=== PATIENT | female | born 1975 | race Caucasian/White ===

== ENCOUNTER 2018-05-31 05:21 | Inpatient (IN) | payer MEDICAID ==
[2018-05-31] VITALS (56 sets, daily range): BP systolic 60–176; BP diastolic 29–99
[~2018-05-31] VITALS: Ht 165.1 cm; Wt 75.4 kg
[2018-05-31] MEDS ORDERED: GELATIN SPONGE,ABSORBABLE 12-7MM SPONGE ONE (06:15)
[2018-05-31] MEDS ORDERED: LACTATED RINGERS 1,000 ML IV SCH (06:15)
[2018-05-31] MEDS ORDERED: THROMBIN (BOVINE) 5000 UNITS/VIAL TOP ONE (06:16)
[2018-05-31] MEDS ORDERED: LIDOCAINE HCL/EPINEPHRINE 1%-EPI 1:100,000 20 ML VIAL ONE (06:16)
[2018-05-31] MEDS ORDERED: BACITRACIN 50,000 UNITS/VIAL ONE (06:16)
[2018-05-31] MEDS ORDERED: SERT-112 PO (06:21)
[2018-05-31] MEDS ORDERED: LEVO137T2 PO (06:21)
[2018-05-31] MEDS ORDERED: PROPOFOL 200MG/20ML VIAL IV ONE (07:03)
[2018-05-31] MEDS ORDERED: MIDAZOLAM HCL 2 MG/2 ML VIAL ONE ×2 (07:04→08:59)
[2018-05-31] MEDS ORDERED: ROCURONIUM BROMIDE 10MG/ML VIAL 5ML IV ONE ×2 (07:10→07:54)
[2018-05-31] MEDS ORDERED: ONDANSETRON HCL 4MG/2ML INJ IV PRN (07:15)
[2018-05-31] MEDS ORDERED: GLYCOPYRROLATE 0.2 MG/ML 2ML VIAL ONE ×2 (07:20→08:48)
[2018-05-31] MEDS ORDERED: LABETALOL HCL 5MG/ML VIAL 20ML IV ONE (07:41)
[2018-05-31] MEDS ORDERED: NEOSTIGMINE METHYLSULFATE 1MG/ML 10 ML VIAL ONE (08:48)
[2018-05-31] MEDS ORDERED: FENTANYL CITRATE/PF 50MCG/ML 2ML VIAL ONE (09:34)
[2018-05-31] MEDS ORDERED: NALOXONE INJ IV PRN (10:00)
[2018-05-31] MEDS ORDERED: ONDANSETRON INJ IV PRN (10:00)
[2018-05-31] MEDS ORDERED: NICARDIPINE 100 MG in SODIUM CHLORIDE 0.9% 60 ML IV PRN (10:00)
[2018-05-31] MEDS: MORPHINE SULFATE 4 MG/ML CPJ (NOT FOR IM USE) IV PRN ×6 (10:02→23:04)
[2018-05-31] MEDS: DEXT 5%/LACTATED RINGERS 1,000 ML IV SCH ×2 (10:04→17:05)
[2018-05-31] MEDS: HYDROMORPHONE PCA 10MG/50ML IV PRN ×2 (10:13→20:55)
[2018-05-31] MEDS: DEXAMETHASONE 4MG/ML 1ML VIAL IV SCH ×2 (11:33→17:05)
[2018-05-31] MEDS: DIPHENHYDRAMINE INJ IV PRN ×3 (11:33→19:53)
[2018-05-31 13:06] LABS: HEMATOCRIT 27.2 % (36.0-48.0); HEMOGLOBIN 8.4 g/dL (12.0-16.0); MEAN CORPUSCULAR HEMOGLOBIN 20.3 pg (28.0-32.0); PLATELET 275 x1000/uL (130-400); RED BLOOD CELL COUNT 4.13 mill/uL (4.2-5.4); RED CELL DISTRIBUTION WIDTH 20.1 % (11.6-14.6)
[2018-05-31 13:21] LABS: CHLORIDE 110 mEq/L (98-107)
[2018-05-31] MEDS: LEVOTHYROXINE SODIUM 137MCG TABLET PO SCH (13:22)
[2018-05-31] MEDS: SERTRALINE HCL 100MG TABLET PO SCH (13:22)
[2018-05-31 13:27] LABS: LDL CHOLESTEROL 103 mg/dL (5-100); PHOSPHORUS 4.5 mg/dL (2.5-4.9)
[2018-05-31 13:29] LABS: HDL CHOLESTEROL 60 mg/dL (40-59)
[2018-05-31] MEDS ORDERED: CEFAZOLIN SODIUM 1000MG/VIAL IV SCH (14:00)
[2018-05-31] MEDS: CEFAZOLIN 1000MG PREMIX 50 ML IV SCH ×2 (16:04→21:16)
[2018-05-31] MEDS ORDERED: LACTULOSE 20G/30ML UDC PO PRN (17:30)
[2018-05-31] MEDS ORDERED: IPRATROPIUM/ALBUTEROL 0.5-3(2.5)MG/3ML NEB HHN PRN (17:30)
[2018-05-31] MEDS ORDERED: BISACODYL 5MG TABLET PO PRN (17:30)
[2018-05-31] MEDS: HYDROCODONE/APAP 7.5/325MG 1 TAB TABLET PO PRN ×2 (19:05→23:04)
[2018-05-31] MEDS: DOCUSATE SODIUM 250MG CAPSULE PO SCH (19:05)
[2018-05-31] MEDS: PANTOPRAZOLE SODIUM 40 MG/VIAL IV SCH (19:53)
[2018-05-31] MEDS: LORAZEPAM 2MG/ML CPJ IV PRN (21:58)
[2018-06-01] VITALS (91 sets, daily range): BP systolic 95–171; BP diastolic 33–115
[2018-06-01] MEDS: DEXAMETHASONE 4MG/ML 1ML VIAL IV SCH ×3 (00:56→11:44)
[2018-06-01] MEDS: DIPHENHYDRAMINE INJ IV PRN ×4 (00:56→18:27)
[2018-06-01] MEDS: MORPHINE SULFATE 4 MG/ML CPJ (NOT FOR IM USE) IV PRN ×9 (00:57→21:37)
[2018-06-01] MEDS: DEXT 5%/LACTATED RINGERS 1,000 ML IV SCH ×3 (01:48→19:55)
[2018-06-01] MEDS: HYDROCODONE/APAP 7.5/325MG 1 TAB TABLET PO PRN ×5 (03:14→21:16)
[2018-06-01 05:05] LABS: HEMOGLOBIN. 8.8 g/dL (12.0-16.0); MEAN CORPUSCULAR HEMOGLOBIN 20.1 pg (28.0-32.0); MEAN PLATELET VOLUME 7.5 fl (7.4-10.4); PLATELET 303 x1000/uL (130-400); RED CELL DISTRIBUTION WIDTH 20.1 % (11.6-14.6)
[2018-06-01] MEDS: CEFAZOLIN 1000MG PREMIX 50 ML IV SCH ×2 (05:20→15:45)
[2018-06-01 05:26] LABS: CHLORIDE 102 mEq/L (98-107)
[2018-06-01] MEDS: LEVOTHYROXINE SODIUM 137MCG TABLET PO SCH (06:12)
[2018-06-01] MEDS: FERROUS SULFATE 325MG TABLET PO SCH ×3 (06:12→17:08)
[2018-06-01] MEDS: HYDROMORPHONE PCA 10MG/50ML IV PRN ×2 (07:52→19:55)
[2018-06-01] MEDS: CYCLOBENZAPRINE 10MG TABLET PO PRN ×3 (08:42→20:09)
[2018-06-01] MEDS: SERTRALINE HCL 100MG TABLET PO SCH (09:15)
[2018-06-01] MEDS: DOCUSATE SODIUM 250MG CAPSULE PO SCH (09:15)
[2018-06-01] MEDS: PANTOPRAZOLE SODIUM 40 MG/VIAL IV SCH (09:15)
[2018-06-01 10:19] LABS: PLATELET ESTIMATE NORMAL
[2018-06-01] MEDS ORDERED: MORPHINE SULFATE 4 MG/ML CPJ (NOT FOR IM USE) IV PRN ×2 (12:15)
[2018-06-01] MEDS: ALPRAZOLAM 0.5 MG TABLET PO PRN ×2 (12:33→21:37)
[2018-06-02] VITALS (56 sets, daily range): BP systolic 91–163; BP diastolic 26–122
[2018-06-02] MEDS: DIPHENHYDRAMINE INJ IV PRN ×6 (00:37→23:43)
[2018-06-02] MEDS: MORPHINE SULFATE 4 MG/ML CPJ (NOT FOR IM USE) IV PRN ×6 (00:42→20:34)
[2018-06-02] MEDS: LORAZEPAM 2MG/ML CPJ IV PRN (01:50)
[2018-06-02] MEDS: DEXT 5%/LACTATED RINGERS 1,000 ML IV SCH (04:55)
[2018-06-02] MEDS: CYCLOBENZAPRINE 10MG TABLET PO PRN (04:55)
[2018-06-02] MEDS: HYDROCODONE/APAP 7.5/325MG 1 TAB TABLET PO PRN ×5 (05:44→23:44)
[2018-06-02] MEDS: ALPRAZOLAM 0.5 MG TABLET PO PRN ×4 (05:44→21:26)
[2018-06-02 06:00] LABS: BASOPHILS % 0.6 % (0.0-2.0); EOSINOPHILS % 0.5 % (0.0-5.0); HEMATOCRIT. 29.1 % (36.0-48.0); HEMOGLOBIN. 8.8 g/dL (12.0-16.0); LYMPHOCYTES % 17.2 % (20.0-50.0); MEAN CORPUSCULAR HEMOGLOBIN 20.2 pg (28.0-32.0); MEAN CORPUSCULAR VOLUME 66.6 fL (81.0-99.0); MEAN PLATELET VOLUME 7.6 fl (7.4-10.4); MONOCYTES % 8.9 % (2.0-8.0); NEUTROPHILS % 72.8 % (40.0-76.0); PLATELET 283 x1000/uL (130-400); RED BLOOD CELL COUNT 4.38 mill/uL (4.2-5.4)
[2018-06-02 06:04] LABS: CHLORIDE 101 mEq/L (98-107)
[2018-06-02] MEDS: LEVOTHYROXINE SODIUM 137MCG TABLET PO SCH (06:35)
[2018-06-02] MEDS: FERROUS SULFATE 325MG TABLET PO SCH ×3 (06:35→18:36)
[2018-06-02] MEDS: DOCUSATE SODIUM 250MG CAPSULE PO SCH (08:56)
[2018-06-02] MEDS: SERTRALINE HCL 100MG TABLET PO SCH (08:56)
[2018-06-02] MEDS: PANTOPRAZOLE SODIUM 40 MG/VIAL IV SCH (08:56)
[2018-06-02] MEDS ORDERED: POTASSIUM CHLORIDE 20MEQ TABLET SR PO NR (09:00)
[2018-06-02] MEDS ORDERED: CYCLOBENZAPRINE 10MG TABLET PO PRN ×2 (13:00→18:30)
[2018-06-02] MEDS: HYDROMORPHONE PCA 10MG/50ML IV PRN (14:29)
[2018-06-02] MEDS ORDERED: ALPRAZOLAM 0.5 MG TABLET PO PRN (18:30)
[2018-06-03] VITALS: BP 129/88
[2018-06-03] MEDS: MORPHINE SULFATE 4 MG/ML CPJ (NOT FOR IM USE) IV PRN ×3 (03:52→12:54)
[2018-06-03 04:00] VITALS: BP 142/90
[2018-06-03] MEDS: DIPHENHYDRAMINE INJ IV PRN ×2 (04:04→09:22)
[2018-06-03] MEDS: LEVOTHYROXINE SODIUM 137MCG TABLET PO SCH (06:34)
[2018-06-03] MEDS: HYDROCODONE/APAP 7.5/325MG 1 TAB TABLET PO PRN (06:36)
[2018-06-03 07:35] LABS: BASOPHILS % 0.9 % (0.0-2.0); EOSINOPHILS % 2.5 % (0.0-5.0); HEMATOCRIT. 27.6 % (36.0-48.0); HEMOGLOBIN. 8.4 g/dL (12.0-16.0); LYMPHOCYTES % 23.8 % (20.0-50.0); MEAN CORPUSCULAR HEMOGLOBIN 20.2 pg (28.0-32.0); MEAN PLATELET VOLUME 7.9 fl (7.4-10.4); MONOCYTES % 10.8 % (2.0-8.0); PLATELET 274 x1000/uL (130-400); RED BLOOD CELL COUNT 4.18 mill/uL (4.2-5.4); RED CELL DISTRIBUTION WIDTH 19.8 % (11.6-14.6)
[2018-06-03 08:00] VITALS: BP 125/76
[2018-06-03 08:12] LABS: CHLORIDE 99 mEq/L (98-107)
[2018-06-03] MEDS: DOCUSATE SODIUM 250MG CAPSULE PO SCH (08:36)
[2018-06-03] MEDS: PANTOPRAZOLE SODIUM 40 MG/VIAL IV SCH (08:36)
[2018-06-03] MEDS: SERTRALINE HCL 100MG TABLET PO SCH (08:36)
[2018-06-03] MEDS: FERROUS SULFATE 325MG TABLET PO SCH ×2 (08:36→12:54)
[2018-06-03] MEDS: ALPRAZOLAM 0.5 MG TABLET PO PRN (09:40)
[2018-06-03 15:01] VITALS: BP 126/77
[2018-06-03 16:00] VITALS: BP 101/71
[2018-06-03] MEDS ORDERED: MORPHINE SULFATE 4 MG/ML CPJ (NOT FOR IM USE) IV NR (16:29)
[2018-06-03 16:33] VITALS: BP 127/80
== END 2018-06-03 17:22 | disposition home or self-care (01) | DRG 321 ==
LOC: OR 05:21 → MICUNO 05:22 → 6EST 06-02 16:55
PROVIDERS: ADMIT Internal Medicine; ATTEND Internal Medicine
PROC: 0RG20K0 Fusion of 2 or more Cervical Vertebral Joints with Nonautologous Tissue Substitute, Anterior Approach, Anterior Column, Open Approach (ICD-10-PCS; principal; 2018-06-01)
PROC: 0RB30ZZ Excision of Cervical Vertebral Disc, Open Approach (ICD-10-PCS; 2018-06-01)
DX: M48.02 Spinal stenosis, cervical region (principal); G82.50 Quadriplegia, unspecified; M47.12 Other spondylosis with myelopathy, cervical region; M47.22 Other spondylosis with radiculopathy, cervical region; F32.9 Major depressive disorder, single episode, unspecified; F41.9 Anxiety disorder, unspecified; E03.9 Hypothyroidism, unspecified; D50.9 Iron deficiency anemia, unspecified; R26.9 Unspecified abnormalities of gait and mobility; G89.18 Other acute postprocedural pain; Z90.710 Acquired absence of both cervix and uterus; Z98.1 Arthrodesis status; Z98.84 Bariatric surgery status; Z98.891 History of uterine scar from previous surgery
CPT/HCPCS: 36415; 72040; 72141; 76000; 80048; 80061; 83036; 83735; 84100; 84443; 85027; 86850; 86900; 88304; 88311; 95925; 95926; 95928; 97116; 97161; 97166; 97535; C1713; C9113; J0690; J1100; J1170; J1200; J2060; J2250; J2270; J2704; J2710; J3010; J3490; J7050; J7121; L0172

== ENCOUNTER 2019-06-13 11:17 | Emergency (ER) | payer MEDICAID ==
[~2019-06-13] VITALS: Ht 165.1 cm; Wt 70.3 kg
[~2019-06-13 11:17] MED LIST: ALPR1TAB2 MT; BUSP5TAB3 PO; CARI350T27 MT; CITA40TA11 PO; CYCL7.5T25 MT; LEVO137T2 PO
[2019-06-13 11:28] VITALS: BP 113/40
== END 2019-06-13 13:34 | disposition home or self-care (01) ==
LOC: ER 11:17
DX: M54.2 Cervicalgia (principal); F12.10 Cannabis abuse, uncomplicated; Z98.1 Arthrodesis status; Z90.710 Acquired absence of both cervix and uterus
CPT/HCPCS: 72141; 99284

== ENCOUNTER 2019-07-18 12:28 | Emergency (ER) | payer MEDICAID ==
[~2019-07-18] VITALS: Ht 165.1 cm; Wt 75.0 kg
[2019-07-18 12:38] VITALS: BP 129/103
[2019-07-18] MEDS ORDERED: IBUPROFEN 800MG TABLET PO ONE (13:00)
[2019-07-18] MEDS ORDERED: ACETAMINOPHEN 500MG TABLET PO ONE (13:00)
[2019-07-18] MEDS ORDERED: LORAZEPAM 1MG TABLET PO ONE (13:45)
== END 2019-07-18 15:53 | disposition home or self-care (01) ==
LOC: ER 12:28
DX: G62.9 Polyneuropathy, unspecified (principal); M25.511 Pain in right shoulder; F12.10 Cannabis abuse, uncomplicated; Z98.1 Arthrodesis status; Z87.11 Personal history of peptic ulcer disease
CPT/HCPCS: 72040; 99283

== ENCOUNTER 2019-12-20 11:49 | Inpatient (IN) | payer MEDICAID ==
[~2019-12-20] VITALS: Ht 165.1 cm; Wt 74.8 kg
[2019-12-20] MEDS ORDERED: SODIUM CHLORIDE 0.9% 1,000 ML IV ONE (12:45)
[2019-12-20 13:07] LABS: BASOPHILS % 1.2 % (0.0-2.0); EOSINOPHILS % 0.7 % (0.0-5.0); HEMATOCRIT. 31.2 % (36.0-48.0); HEMOGLOBIN. 9.6 g/dL (12.0-16.0); LYMPHOCYTES % 30.7 % (20.0-50.0); MEAN CORPUSCULAR HEMOGLOBIN 21.1 pg (28.0-32.0); MEAN CORPUSCULAR VOLUME 68.6 fL (81.0-99.0); MEAN PLATELET VOLUME 7.5 fl (7.4-10.4); MONOCYTES % 10.3 % (2.0-8.0); NEUTROPHILS % 57.1 % (40.0-76.0); PLATELET 400 x1000/uL (130-400); RED BLOOD CELL COUNT 4.54 mill/uL (4.2-5.4); RED CELL DISTRIBUTION WIDTH 18.9 % (11.6-14.6)
[2019-12-20 13:15] LABS: CHLORIDE 107 mEq/L (98-107)
[2019-12-20 13:19] LABS: PARTIAL THROMBOPLASTIN TIME 27.5 sec (23.4-31.0); PROTHROMBIN TIME 10.1 sec (9.6-11.0)
[2019-12-20 13:24] LABS: HCG SCREEN NEGATIVE
[2019-12-20] MEDS ORDERED: ONDANSETRON HCL 4MG/2ML INJ IV STA ×2 (13:47→18:18)
[2019-12-20] MEDS ORDERED: MORPHINE SULFATE 4 MG/ML CPJ (NOT FOR IM USE) IV STA ×2 (13:47→18:18)
[2019-12-20 14:20] LABS: PLATELET ESTIMATE NORMAL
[2019-12-20] MEDS ORDERED: ASPIRIN 325MG EC TABLET PO ONE (18:30)
[2019-12-20] MEDS ORDERED: DOCUSATE SODIUM 100MG CAPSULE PO PRN (19:15)
[2019-12-20] MEDS ORDERED: ONDANSETRON HCL 4MG/2ML INJ IV PRN (19:15)
[2019-12-20] MEDS ORDERED: IPRATROPIUM/ALBUTEROL 0.5-3(2.5)MG/3ML NEB HHN PRN (19:15)
[2019-12-20] MEDS ORDERED: CLONIDINE 0.1MG TABLET PO PRN (19:15)
[2019-12-20] MEDS ORDERED: ACETAMINOPHEN 325MG TABLET PO PRN ×2 (19:15)
[2019-12-20] MEDS: HYDROCODONE/ACETAMINOPHEN 5/325MG TABLET PO PRN (20:59)
[2019-12-20] MEDS: LORAZEPAM 0.5MG TABLET PO PRN (20:59)
[2019-12-20 21:17] VITALS: BP 145/61
[2019-12-20] MEDS ORDERED: HYDR-4009 PO (22:07)
[2019-12-20] MEDS ORDERED: AMIT25TA9 PO (22:07)
[2019-12-20] MEDS ORDERED: TIZA4CAP6 PO (22:07)
[2019-12-20] MEDS ORDERED: CYCL10TA7 PO (22:07)
[2019-12-20] MEDS: MORPHINE SULFATE 2 MG/ML CPJ (NOT FOR IM USE) IV PRN (23:08)
[2019-12-20 23:20] VITALS: BP 117/63
[2019-12-21] MEDS: HYDROCODONE/ACETAMINOPHEN 5/325MG TABLET PO PRN ×2 (02:40→08:27)
[2019-12-21 04:00] VITALS: BP 134/84
[2019-12-21] MEDS: LORAZEPAM 0.5MG TABLET PO PRN ×4 (05:22→22:20)
[2019-12-21] MEDS: MORPHINE SULFATE 2 MG/ML CPJ (NOT FOR IM USE) IV PRN (05:22)
[2019-12-21 06:41] LABS: BASOPHILS % 1.3 % (0.0-2.0); EOSINOPHILS % 1.7 % (0.0-5.0); HEMATOCRIT. 30.2 % (36.0-48.0); HEMOGLOBIN. 9.3 g/dL (12.0-16.0); LYMPHOCYTES % 30.5 % (20.0-50.0); MEAN CORPUSCULAR HEMOGLOBIN 21.1 pg (28.0-32.0); MEAN CORPUSCULAR VOLUME 68.6 fL (81.0-99.0); MEAN PLATELET VOLUME 7.5 fl (7.4-10.4); MONOCYTES % 8.9 % (2.0-8.0); NEUTROPHILS % 57.6 % (40.0-76.0); PLATELET 339 x1000/uL (130-400); RED CELL DISTRIBUTION WIDTH 18.8 % (11.6-14.6)
[2019-12-21 06:49] LABS: CHLORIDE 107 mEq/L (98-107)
[2019-12-21 07:56] VITALS: BP 112/70
[2019-12-21 12:05] VITALS: BP 113/76
[2019-12-21 12:20] VITALS: BP 112/65
[2019-12-21] MEDS: MORPHINE SULFATE 4 MG/ML CPJ (NOT FOR IM USE) IV PRN ×3 (12:54→22:20)
[2019-12-21 16:00] VITALS: BP 119/73
[2019-12-21] MEDS ORDERED: CYCLOBENZAPRINE 10MG TABLET PO PRN (16:30)
[2019-12-21] MEDS: PANTOPRAZOLE SODIUM 40 MG/VIAL IV SCH (18:14)
[2019-12-21 20:00] VITALS: BP 126/69
[2019-12-21] MEDS: AMITRIPTYLINE 25MG TABLET PO SCH (22:20)
[2019-12-21] MEDS ORDERED: INFLUENZA VACCINE 05/PF 0.5 ML VIAL IM ONE (23:30)
[2019-12-22] VITALS: BP 115/80
[2019-12-22] MEDS: MORPHINE SULFATE 4 MG/ML CPJ (NOT FOR IM USE) IV PRN ×6 (02:53→23:56)
[2019-12-22] MEDS: LORAZEPAM 0.5MG TABLET PO PRN ×6 (02:53→23:55)
[2019-12-22 04:00] VITALS: BP 114/78
[2019-12-22 06:05] LABS: CHLORIDE 102 mEq/L (98-107)
[2019-12-22 06:20] LABS: TOTAL IRON BINDING CAPACITY 584 ug/dL (250-450)
[2019-12-22 06:23] LABS: FERRITIN < 5 ng/mL (10-291)
[2019-12-22 06:28] LABS: BASOPHILS % 0.8 % (0.0-2.0); EOSINOPHILS % 0.7 % (0.0-5.0); HEMATOCRIT. 32.9 % (36.0-48.0); HEMOGLOBIN. 10.2 g/dL (12.0-16.0); LYMPHOCYTES % 19.8 % (20.0-50.0); MEAN CORPUSCULAR VOLUME 67.7 fL (81.0-99.0); MEAN PLATELET VOLUME 7.7 fl (7.4-10.4); MONOCYTES % 7.4 % (2.0-8.0); NEUTROPHILS % 71.3 % (40.0-76.0); PLATELET 396 x1000/uL (130-400); RED BLOOD CELL COUNT 4.86 mill/uL (4.2-5.4); RED CELL DISTRIBUTION WIDTH 18.5 % (11.6-14.6)
[2019-12-22] MEDS: LEVOTHYROXINE SODIUM 137MCG TABLET PO SCH ×2 (06:31→07:21)
[2019-12-22 06:59] LABS: VITAMIN B12 SERUM 173 pg/mL (211-911)
[2019-12-22] MEDS: PANTOPRAZOLE SODIUM 40 MG/VIAL IV SCH ×2 (07:21→17:25)
[2019-12-22 08:00] VITALS: BP 116/77
[2019-12-22 12:00] VITALS: BP 121/68
[2019-12-22 16:00] VITALS: BP 121/77
[2019-12-22] MEDS: DIPHENHYDRAMINE 25MG CAPSULE PO PRN ×2 (17:25→23:55)
[2019-12-22] MEDS ORDERED: CYANOCOBALAMIN 1000MCG/ML VIAL IM NR (18:30)
[2019-12-22] MEDS: AMITRIPTYLINE 25MG TABLET PO SCH (19:57)
[2019-12-22 20:00] VITALS: BP 130/72
[2019-12-22] MEDS ORDERED: IRON SUCROSE COMPLEX 100 MG/5 ML ML IV SCH (20:00)
[2019-12-22] MEDS ORDERED: ZOLPIDEM TARTRATE 5MG TABLET PO PRN (21:00)
[2019-12-22] MEDS: HYDROCODONE/ACETAMINOPHEN 5/325MG TABLET PO PRN (21:18)
[2019-12-23] VITALS: BP 111/69
[2019-12-23 04:00] VITALS: BP 108/70
[2019-12-23] MEDS: LORAZEPAM 0.5MG TABLET PO PRN ×3 (05:12→13:46)
[2019-12-23] MEDS: MORPHINE SULFATE 4 MG/ML CPJ (NOT FOR IM USE) IV PRN ×3 (05:13→13:47)
[2019-12-23 06:11] LABS: BASOPHILS % 0.6 % (0.0-2.0); EOSINOPHILS % 1.3 % (0.0-5.0); HEMATOCRIT. 34.9 % (36.0-48.0); HEMOGLOBIN. 10.9 g/dL (12.0-16.0); LYMPHOCYTES % 16.3 % (20.0-50.0); MEAN CORPUSCULAR HEMOGLOBIN 21.2 pg (28.0-32.0); MEAN PLATELET VOLUME 7.6 fl (7.4-10.4); MONOCYTES % 7.1 % (2.0-8.0); NEUTROPHILS % 74.7 % (40.0-76.0); PLATELET 366 x1000/uL (130-400); RED BLOOD CELL COUNT 5.13 mill/uL (4.2-5.4); RED CELL DISTRIBUTION WIDTH 18.6 % (11.6-14.6)
[2019-12-23 06:37] LABS: CHLORIDE 103 mEq/L (98-107)
[2019-12-23 08:00] VITALS: BP 114/60
[2019-12-23] MEDS: PANTOPRAZOLE SODIUM 40 MG/VIAL IV SCH (09:09)
[2019-12-23] MEDS: HYDROCODONE/ACETAMINOPHEN 5/325MG TABLET PO PRN (11:07)
[2019-12-23] MEDS: DIPHENHYDRAMINE 25MG CAPSULE PO PRN (11:07)
[2019-12-23 12:00] VITALS: BP 112/75
[2019-12-23] MEDS ORDERED: IRON SUCROSE COMPLEX 100 MG/5 ML ML IV NR (13:45)
[2019-12-23] MEDS ORDERED: HYDR-4009 PO (16:09)
[2019-12-23] MEDS ORDERED: ALPR0.25 MT (16:10)
[2019-12-23] MEDS ORDERED: HYDR-4009 MT (16:10)
[2019-12-23 17:04] VITALS: BP 112/75
== END 2019-12-23 17:30 | disposition home or self-care (01) | DRG 351 ==
LOC: ER 12:21 → EDBEDREQ 18:26 → ENRESERV 20:25 → 8WST 21:36
PROVIDERS: ADMIT Internal Medicine; ATTEND Internal Medicine
DX: M75.100 Unspecified rotator cuff tear or rupture of unspecified shoulder, not specified as traumatic (principal); D50.9 Iron deficiency anemia, unspecified; E03.9 Hypothyroidism, unspecified; F11.20 Opioid dependence, uncomplicated; F12.90 Cannabis use, unspecified, uncomplicated; F41.9 Anxiety disorder, unspecified; G89.4 Chronic pain syndrome; M47.9 Spondylosis, unspecified; M48.02 Spinal stenosis, cervical region; M48.04 Spinal stenosis, thoracic region; W10.9XXA Fall (on) (from) unspecified stairs and steps, initial encounter; M54.12 Radiculopathy, cervical region; F32.9 Major depressive disorder, single episode, unspecified; D72.821 Monocytosis (symptomatic); M19.011 Primary osteoarthritis, right shoulder; I65.21 Occlusion and stenosis of right carotid artery; Z79.890 Hormone replacement therapy; Z79.899 Other long term (current) drug therapy; Z90.710 Acquired absence of both cervix and uterus; Z98.84 Bariatric surgery status; Z98.891 History of uterine scar from previous surgery; Z87.11 Personal history of peptic ulcer disease; Y93.89 Activity, other specified; Y92.89 Other specified places as the place of occurrence of the external cause; Y99.8 Other external cause status
CPT/HCPCS: 36415; 70544; 70547; 70553; 71045; 72141; 72146; 72148; 73220; 80048; 80053; 82607; 82728; 82746; 83540; 83550; 84443; 84484; 84703; 85025; 86850; 86900; 90686; 93005; 93880; 97116; 97162; 97165; 97535; 99291; A4565; C9113; J2270; J2405; J3420; J7030; Q0163

== ENCOUNTER 2020-03-14 09:19 | Emergency (ER) | payer MEDICAID ==
[~2020-03-14] VITALS: Ht 165.1 cm; Wt 70.0 kg
[~2020-03-14 09:19] MED LIST changes: +ALPR0.25 MT; -ALPR1TAB2 MT; +AMIT25TA9 PO; -BUSP5TAB3 PO; -CARI350T27 MT; -CITA40TA11 PO; +CYCL10TA7 PO; -CYCL7.5T25 MT; +HYDR-4009 MT; +HYDR-4009 PO; +TIZA4CAP6 PO
[2020-03-14 11:01] LABS: EOSINOPHILS % 0.4 % (0.0-5.0); HEMATOCRIT. 34.2 % (36.0-48.0); HEMOGLOBIN. 10.6 g/dL (12.0-16.0); LYMPHOCYTES % 26.5 % (20.0-50.0); MEAN CORPUSCULAR HEMOGLOBIN 22.1 pg (28.0-32.0); MEAN CORPUSCULAR VOLUME 71.4 fL (81.0-99.0); MONOCYTES % 6.8 % (2.0-8.0); NEUTROPHILS % 65.3 % (40.0-76.0); PLATELET 394 x1000/uL (130-400); RED CELL DISTRIBUTION WIDTH 21.7 % (11.6-14.6)
[2020-03-14 11:08] LABS: CHLORIDE 105 mEq/L (98-107)
[2020-03-14 11:10] LABS: PROTHROMBIN TIME 10.3 sec (9.6-11.0)
[2020-03-14 11:55] LABS: CLARITY URINE CLEAR (CLEAR); COLOR URINE YELLOW (YELLOW); KETONES URINE NEGATIVE (NEGATIVE); LEUKOCYTE ESTERASE URINE TRACE (NEGATIVE); NITRITE URINE NEGATIVE (NEGATIVE); OCCULT BLOOD URINE NEGATIVE (NEGATIVE); PH URINE 5.5 (4.5-8.0); PROTEIN URINE NEGATIVE (NEGATIVE); SPECIFIC GRAVITY URINE 1.008 (1.005-1.030)
[2020-03-14 12:03] LABS: *BARBITURATES SCREEN URINE NEGATIVE (NEGATIVE)
[2020-03-14 12:04] LABS: *AMPHETAMINES SCREEN URINE NEGATIVE (NEGATIVE); *BENZODIAZEPINES SCREEN URINE NEGATIVE (NEGATIVE); *COCAINE SCREEN URINE NEGATIVE (NEGATIVE); METHADONE URINE SCREEN NEGATIVE (NEGATIVE)
[2020-03-14 12:09] LABS: PHENCYCLIDINE URINE SCREEN NEGATIVE (NEGATIVE)
[2020-03-14 12:16] LABS: CANNABINOID URINE SCREEN PRESUMTIVE POSITIVE (NEGATIVE); OPIATES URINE SCREEN PRESUMTIVE POSITIVE (NEGATIVE)
[2020-03-14] MEDS ORDERED: MORPHINE SULFATE 4 MG/ML CPJ (NOT FOR IM USE) IV ONE ×2 (12:30→14:00)
[2020-03-14] MEDS ORDERED: SODIUM CHLORIDE 0.9% 1,000 ML IV ONE (12:30)
[2020-03-14 14:33] VITALS: BP 141/97
== END 2020-03-14 14:59 | disposition home or self-care (01) ==
LOC: ER 09:19
DX: R10.13 Epigastric pain (principal); G89.29 Other chronic pain; R55 Syncope and collapse; E86.0 Dehydration; D50.9 Iron deficiency anemia, unspecified; M25.511 Pain in right shoulder; F41.9 Anxiety disorder, unspecified; E03.9 Hypothyroidism, unspecified; F12.10 Cannabis abuse, uncomplicated; Z98.84 Bariatric surgery status; Z90.710 Acquired absence of both cervix and uterus; Z98.890 Other specified postprocedural states
CPT/HCPCS: 36415; 71045; 73030; 76700; 80053; 80305; 81003; 81025; 82962; 83690; 85025; 85610; 93005; 96374; 96376; 99285; J2270; J7030

== ENCOUNTER 2020-04-11 09:22 | Emergency (ER) | payer MEDICAID ==
[~2020-04-11] VITALS: Ht 165.1 cm; Wt 73.0 kg
[2020-04-11] MEDS ORDERED: SODIUM CHLORIDE 0.9% 1,000 ML IV ONE (09:45)
[2020-04-11] MEDS ORDERED: MORPHINE SULFATE 4 MG/ML CPJ (NOT FOR IM USE) IV STA (09:45)
[2020-04-11] MEDS ORDERED: KETOROLAC 30MG/ML VIAL IV STA (09:45)
[2020-04-11] MEDS ORDERED: METOCLOPRAMIDE HCL 10MG/2ML VIAL IV ONE (09:45)
[2020-04-11 10:05] LABS: BASOPHILS % 0.6 % (0.0-2.0); EOSINOPHILS % 0.3 % (0.0-5.0); HEMATOCRIT. 33.6 % (36.0-48.0); HEMOGLOBIN. 10.7 g/dL (12.0-16.0); LYMPHOCYTES % 14.1 % (20.0-50.0); MEAN CORPUSCULAR HEMOGLOBIN 22.5 pg (28.0-32.0); MEAN PLATELET VOLUME 7.1 fl (7.4-10.4); MONOCYTES % 4.1 % (2.0-8.0); NEUTROPHILS % 80.9 % (40.0-76.0); PLATELET 425 x1000/uL (130-400); RED BLOOD CELL COUNT 4.73 mill/uL (4.2-5.4); RED CELL DISTRIBUTION WIDTH 20.2 % (11.6-14.6)
[2020-04-11 10:16] LABS: PROTHROMBIN TIME 10.1 sec (9.6-11.0)
[2020-04-11 10:18] LABS: CHLORIDE 105 mEq/L (98-107)
[2020-04-11] MEDS ORDERED: LORAZEPAM 0.5MG TABLET PO ONE (11:30)
[2020-04-11] MEDS ORDERED: IBUP-2028 MT (11:31)
[2020-04-11] MEDS ORDERED: T3 PO (11:31)
[2020-04-11 11:45] VITALS: BP 122/92
[2020-04-11] MEDS ORDERED: ACETAMINOPHEN 325MG TABLET PO ONE (12:15)
== END 2020-04-11 11:45 | disposition home or self-care (01) ==
LOC: ER 09:43
DX: R51.9 Headache, unspecified (principal); F41.9 Anxiety disorder, unspecified; E03.9 Hypothyroidism, unspecified; Z98.84 Bariatric surgery status; Z90.710 Acquired absence of both cervix and uterus; Z98.890 Other specified postprocedural states
CPT/HCPCS: 36415; 80053; 85025; 85610; 93005; 96361; 96374; 96375; 99284; J1885; J2270; J2765; J7030

== ENCOUNTER 2020-04-24 13:33 | Emergency (ER) | payer MEDICAID ==
[~2020-04-24] VITALS: Ht 165.1 cm; Wt 81.0 kg
[~2020-04-24 13:33] MED LIST changes: +IBUP-2028 MT; +T3 PO
[2020-04-24] MEDS ORDERED: IBUPROFEN 600MG TABLET PO ONE (14:30)
[2020-04-24 14:39] VITALS: BP 145/94
[2020-04-24] MEDS ORDERED: TRAMADOL 50MG TABLET PO ONE (15:00)
[2020-04-24 15:09] LABS: CHLORIDE 104 mEq/L (98-107)
[2020-04-24 15:13] LABS: BASOPHILS % 0.5 % (0.0-2.0); EOSINOPHILS % 0.4 % (0.0-5.0); ETHANOL BLOOD < 10 mg/dL; HEMATOCRIT. 36.6 % (36.0-48.0); HEMOGLOBIN. 11.3 g/dL (12.0-16.0); LYMPHOCYTES % 24.5 % (20.0-50.0); MEAN CORPUSCULAR HEMOGLOBIN 22.7 pg (28.0-32.0); MEAN CORPUSCULAR VOLUME 73.6 fL (81.0-99.0); MEAN PLATELET VOLUME 7.2 fl (7.4-10.4); MONOCYTES % 6.1 % (2.0-8.0); NEUTROPHILS % 68.5 % (40.0-76.0); PLATELET 514 x1000/uL (130-400); RED BLOOD CELL COUNT 4.97 mill/uL (4.2-5.4); RED CELL DISTRIBUTION WIDTH 20.2 % (11.6-14.6)
[2020-04-24 15:15] LABS: HCG SCREEN NEGATIVE
== END 2020-04-24 16:25 | disposition left against medical advice (07) ==
LOC: ER 13:33
DX: M25.552 Pain in left hip (principal); M25.551 Pain in right hip; M25.511 Pain in right shoulder; E03.9 Hypothyroidism, unspecified; R00.0 Tachycardia, unspecified; F19.10 Other psychoactive substance abuse, uncomplicated; F17.200 Nicotine dependence, unspecified, uncomplicated; Z90.710 Acquired absence of both cervix and uterus; Z79.899 Other long term (current) drug therapy; Z98.890 Other specified postprocedural states
CPT/HCPCS: 36415; 80053; 80307; 80320; 80329; 84703; 85025; 93005; 99284; G0480